=== PATIENT | female | born 1980 | race Caucasian/White ===

== ENCOUNTER 2023-02-16 10:42 | Emergency (ER) | payer SELFPAY ==
--- NOTE | 2023-02-16 11:37 | RAD REPORT ---
EXAM DESCRIPTION: CT - Head Brain Wo Cont - 02/16/2023 11:30 am CLINICAL HISTORY: HEADACHE Headache, drowsiness COMPARISON: No comparisons TECHNIQUE: All CT scans are performed using dose optimization technique as appropriate and may inclu de automated exposure control or mA/KV adjustment according to patient size. FINDINGS: No intracranial hemorrhage, hydrocephalus or extra-axial fluid collection.No areas of brai n edema or evidence of midline shift. The paranasal sinuses and mastoids are clear. The calvarium is intact. IMPRESSION: No acute intracranial abnormality.
[2023-02-16] MEDS ORDERED: KETOROLAC 30 MG/ML INJ ONE (12:11)
[2023-02-16] MEDS ORDERED: TETRACAINE HCL 0.5% 4ML OPTH ONE (12:23)
--- NOTE | 2023-02-16 12:29 | ER ---
Nurse's Notes [facility] Name: Miladis Reyna Age: 42 yrs Sex: Female : 1980 Arrival Date: 02/16/2023 Time: 10:42 Bed 12 Private MD: Diagnosis: Headache Presentation: 02/16 11:16 Chief complaint: Pain behind the left eye that radiates to left head and neck x 8 days, hb loss of vision x 2-3 days. Coronavirus screen: At this time, the client does not indicate any symptoms associated with coronavirus-19. Ebola Screen: No symptoms or risks identified at this time. Initial Sepsis Screen: Does the patient meet any 2 criteria? No. Patient's initial sepsis screen is negative. Does the patient have a suspected source of infection? No. Patient's initial sepsis screen is negative. Risk Assessment: Do you want to hurt yourself or someone else? Patient reports no desire to harm self or others. Onset of symptoms was February 08, 2023. 11:16 Method Of Arrival: Ambulatory hb 11:16 Acuity: ABDULLAHI 2 hb Triage Assessment: 12:11 Headache History: The patient has had previous headaches. General: Appears in no mb9 apparent distress. Pain: Complains of pain in left eye. MAILMASTER: 14:22 LMP N/A - mb9 Historical: - Allergies: 11:18 No Known Allergies; hb - Home Meds: 11:18 Cymbalta oral [Active]; Adderall XR Oral [Active]; hb - PMHx: 11:18 ADHD; hb - PSHx: 11:18 None; hb - Immunization history:: Adult Immunizations up to date. - Social history:: Smoking status: Patient denies any tobacco usage or history of. Screenin:10 [facility] ED Fall Risk Assessment (Adult) History of falling in the last 3 months, mb9 including since admission No falls in past 3 months (0 pts) Confusion or Disorientation No (0 pts) Intoxicated or Sedated No (0 pts) Impaired Gait No (0 pts) Mobility Assist Device Used No (0 pt) Altered Elimination No (0 pt) Score/Fall Risk Level 0 - 2 = Low Risk Oriented to surroundings, Maintained a safe environment, Educated pt \T\ family on fall prevention, incl call for assistance when getting out of bed. Abuse screen: Denies threats or abuse. Nutritional screening: No deficits noted. Tuberculosis screening: No symptoms or risk factors identified. Assessment: 12:08 General: Appears in no apparent distress. Behavior is calm, cooperative. Pain: mb9 Complains of pain in left eye Pain does not radiate. Pain currently is 7 out of 10 on a pain scale. Quality of pain is described as throbbing, Pain began 2-3 days ago. Is continuous, Aggravated by increased activity. Neuro: Casanova Agitation-Sedation Scale (RASS): 0 - Alert and Calm Level of Consciousness is awake, alert, obeys commands, Oriented to person, place, time, situation, Appropriate for age Pupils are Pupil Size: right pupil 3 mm, left pupil 5 mm. Bilateral eyes round, reactive to light, and accomdate. Neuro: Greenhouse Worker are equal bilaterally Moves all extremities. Gait is steady, Speech is normal, Facial symmetry appears normal, Intact. Cardiovascular: Patient's skin is warm and dry. Respiratory: Airway is patent Respiratory effort is even, unlabored, Respiratory pattern is regular, symmetrical, Breath sounds are clear bilaterally. EENT: Sclera/Cornea. Derm: Skin is pink, warm \T\ dry. Musculoskeletal: Range of motion: intact in all extremities. 13:18 Reassessment: No changes from previously documented assessment. Patient and/or family mb9 updated on plan of care and expected duration. Pain level reassessed. Patient is alert, oriented x 3, equal unlabored respirations, skin warm/dry/pink. 14:21 Reassessment: No changes from previously documented assessment. Patient and/or family mb9 updated on plan of care and expected duration. Pain level reassessed. Patient is alert, oriented x 3, equal unlabored respirations, skin warm/dry/pink. 15:23 Reassessment: No changes from previously documented assessment. Patient and/or family mb9 updated on plan of care and expected duration. Pain level reassessed. Patient is alert, oriented x 3, equal unlabored respirations, skin warm/dry/pink. Vital Signs: 11:16 BP 130 / 86; Pulse 71; Resp 16; Temp 98.8(TE); Pulse Ox 100% on R/A; Weight 81.65 kg; hb Height 5 ft. 3 in. ; Pain 5/10; 12:10 BP 133 / 84; Pulse 74; Resp 16; Pulse Ox 100% on R/A; mb9 14:22 BP 111 / 78; Pulse 80; Resp 18; Pulse Ox 99% on R/A; mb9 15:23 BP 115 / 76; Pulse 78; Resp 17; Pulse Ox 99% on R/A; mb9 11:16 Body Mass Index 31.89 (81.65 kg, 160.02 cm) hb 11:16 Pain Scale: Adult hb Visual Acuity: 12:10 Left Eye Visual acuity 20/200, Pupil size 5 mm, Normal, React To Light, Reactive To mb9 Accomodation; Right Eye Visual acuity 20/20, Pupil size 3 mm, Normal, React To Light, Reactive To Accomodation; Both Eyes Visual acuity 20/20; Without Lenses; ED Course: 10:43 Patient arrived in ED. rg4 10:54 [facility] jh7 10:54 Howie Abel MD is Attending Physician. jh7 11:18 Triage completed. hb 11:19 Arm band placed on. hb 11:31 CT Head Brain wo Cont In Process Unspecified. EDMS 11:57 Lachelle Romero, RN is Primary Nurse. mb9 12:11 Placed in gown. Bed in low position. Call light in reach. Side rails up X 1. Client mb9 placed on continuous cardiac and pulse oximetry monitoring. NIBP monitoring applied. 12:28 Bran Sotelo MD is Referral Physician. jh7 14:22 No provider procedures requiring assistance completed. mb9 14:29 Attending Physician role handed off by Howie Abel MD cp3 14:29 Arnie Cruz MD is Attending Physician. cp3 15:18 Brain Wo Cont In Process Unspecified. EDMS 15:56 Chace Lake MD is Referral Physician. cp3 15:57 Zander Sotelo MD is Referral Physician. cp3 16:20 Patient did not have IV access during this emergency room visit. mb9 Administered Medications: 12:07 Drug: Ketorolac IM 60 mg Route: IM; Site: left gluteus; mb9 12:23 Follow up: Response: No adverse reaction mb9 12:23 Drug: Tetracaine Ophthalmic Drops 0.5 % 1 drops Route: Ophthalmic; Site: left eye; mb9 Medication: 12:10 VIS not applicable for this client. mb9 Outcome: 12:29 Discharge ordered by . jh7 15:57 Discharge ordered by . cp3 16:20 Discharged to home ambulatory, with family. mb9 16:20 Condition: stable 16:20 Discharge instructions given to patient, Instructed on discharge instructions, follow up and referral plans. Demonstrated understanding of instructions, follow-up care, medications, Prescriptions given X 1. 16:20 Patient left the ED. mb9 Signatures: Dispatcher [employer] Arnie Belcher MD MD cp3 Janeen Argueta, RN RN Jasmin Ramos 4 Dayana Bowers, ELECTRIC RANGE SERVICER ELECTRIC RANGE SERVICER 7 Lachelle Romero, RN RN mb9
--- NOTE | 2023-02-16 12:29 | EDPHYS ---
Physician Documentation [facility] Name: Miladis Reyna Age: 42 yrs Sex: Female : 1980 Arrival Date: 02/16/2023 Time: 10:42 Bed 12 Private MD: ED Physician Arnie Cruz HPI: 02/16 11:15 This 42 yrs old Female presents to ER via Ambulatory with complaints of Headache, Eye jh7 Problem. 11:15 The patient complains of pain to the left eye. The patient describes the headache as jh7 aching, throbbing. Onset: The symptoms/episode began/occurred 8 day(s) ago. Associated signs and symptoms: Pertinent positives: blurred vision, Pertinent negatives: altered mental status, dizziness, fever, nausea, neck stiffness, Photophobia. Headache History: Denies prior headaches. 42-year-old female with no past medical history presents for left eye pain and blurred vision for the past 8 days. She denies any trauma. Reports that the pain has gotten progressively worse and is now waking her from sleep.. PHARMACY INTERN: 14:22 [facility] N/A - mb9 Historical: - Allergies: 11:18 No Known Allergies; hb - Home Meds: 11:18 Cymbalta oral [Active]; Adderall XR Oral [Active]; hb - PMHx: 11:18 ADHD; hb - PSHx: 11:18 None; hb - Immunization history:: Adult Immunizations up to date. - Social history:: Smoking status: Patient denies any tobacco usage or history of. ROS: 11:15 Constitutional: Negative for fever, chills, and weight loss, Neck: Negative for injury, jh7 pain, and swelling, Cardiovascular: Negative for chest pain, palpitations, and edema, Respiratory: Negative for shortness of breath, cough, wheezing, and pleuritic chest pain, Skin: Negative for injury, rash, and discoloration, Neuro: Negative for headache, weakness, numbness, tingling, and seizure. 11:15 Eyes: Positive for blurry vision, pain, Negative for discharge, foreign body sensation, injury or acute deformity, itching, redness. 11:15 All other systems are negative. Exam: 11:15 Constitutional: This is a well developed, well nourished patient who is awake, alert, jh7 and in no acute distress. Head/Face: Normocephalic, atraumatic. Neck: Trachea midline, no thyromegaly or masses palpated, and no cervical lymphadenopathy. Supple, full range of motion without nuchal rigidity, or vertebral point tenderness. No Meningismus. Cardiovascular: Regular rate and rhythm with a normal S1 and S2. No gallops, murmurs, or rubs. Normal PMI, no JVD. No pulse deficits. Respiratory: Lungs have equal breath sounds bilaterally, clear to auscultation and percussion. No rales, rhonchi or wheezes noted. No increased work of breathing, no retractions or nasal flaring. Skin: Warm, dry with normal turgor. Normal color with no rashes, no lesions, and no evidence of cellulitis. MS/ Extremity: Pulses equal, no cyanosis. Neurovascular intact. Full, normal range of motion. Neuro: Awake and alert, GCS 15, oriented to person, place, time, and situation. Cranial nerves II-XII grossly intact. Motor strength 5/5 in all extremities. Sensory grossly intact. Cerebellar exam normal. Normal gait. 11:15 Eyes: Periorbital structures: appear normal, Pupils: dilated, in left eye, right pupil is approximately 3 mm(s), left pupil is approximately 5 mm(s), Extraocular movements: intact throughout, Conjunctiva: normal, Corneas: are normal, Sclera: no appreciated abnormality, Anterior chamber: no acute changes, Lids and lashes: appear normal. Vital Signs: 11:16 BP 130 / 86; Pulse 71; Resp 16; Temp 98.8(TE); Pulse Ox 100% on R/A; Weight 81.65 kg; hb Height 5 ft. 3 in. ; Pain 5/10; 12:10 BP 133 / 84; Pulse 74; Resp 16; Pulse Ox 100% on R/A; mb9 14:22 BP 111 / 78; Pulse 80; Resp 18; Pulse Ox 99% on R/A; mb9 15:23 BP 115 / 76; Pulse 78; Resp 17; Pulse Ox 99% on R/A; mb9 11:16 Body Mass Index 31.89 (81.65 kg, 160.02 cm) hb 11:16 Pain Scale: Adult hb Visual Acuity: 12:10 Left Eye Visual acuity 20/200, Pupil size 5 mm, Normal, React To Light, Reactive To mb9 Accomodation; Right Eye Visual acuity 20/20, Pupil size 3 mm, Normal, React To Light, Reactive To Accomodation; Both Eyes Visual acuity 20/20; Without Lenses; Procedures: 12:30 Eye Exam: Tonometry: L eye-18, R eye-17. [facility] MDM: 10:54 Patient medically screened. [facility] 12:35 ED course: Negative CT of the brain and tonometry results were within normal range. [facility] Will order an MRI of the brain with contrast. Patient states that she is feeling better after Toradol administration.. 16:02 Data reviewed: vital signs, nurses notes, EMS record, EKG, radiologic studies, CT scan, cp3 MRI. 02/16 11:19 Order name: CT Head Brain wo Cont; Complete Time: 11:45 [facility] 02/16 14:52 Order name: Brain Wo Cont; Complete Time: 15:55 EDMS 02/16 11:31 Order name: Visual Acuity; Complete Time: 12:08 [facility] Administered Medications: 12:07 Drug: Ketorolac IM 60 mg Route: IM; Site: left gluteus; mb9 12:23 Follow up: Response: No adverse reaction mb9 12:23 Drug: Tetracaine Ophthalmic Drops 0.5 % 1 drops Route: Ophthalmic; Site: left eye; mb9 Disposition: 15:56 I reviewed the patient's care provided by Advanced Practice Provider \T\ agree w/ the cp3 diagnosis \T\ care plan. I personally saw the pt \T\ performed a substantive portion of the visit, incldng all aspects of the (History/Exam/Medical Decision Making). Disposition Summary: 02/16/23 15:57 Discharge Ordered Location: Home(02/16/23 15:57) cp3 Condition: Stable(02/16/23 15:57) cp3 Diagnosis - Headache cp3 Followup: cp3 - With: Chace Lake MD - When: 48 Hours - Reason: Recheck today's complaints Followup: cp3 - With: Zander Sotelo MD - When: - Reason: Recheck today's complaints Discharge Instructions: - Discharge Summary Sheet cp3 - General Headache Without Cause cp3 Forms: - Medication Reconciliation Form cp3 - Thank You Letter cp3 - Antibiotic Education cp3 - Prescription Opioid Use cp3 - Patient Portal Instructions cp3 - Leadership Thank You Letter cp3 Prescriptions: - aspirin 81 mg Oral tablet,chewable - chew 1 tablet by ORAL route 2 times per day; 30 tablet; Refills: 0, Product cp3 Selection Permitted Signatures: Dispatcher [employer] EDMS Arnie Cruz MD MD cp3 Janeen Argueta, RN RN Dayana Bowers FNP [facility]7 Lachelle Romero RN RN mb9 Corrections: (The following items were deleted from the chart) 12:36 12:29 [place] [id number] 12:36 12:29 [place] [address] 12:36 12:29 are unchanged [place] [address] 12:36 12:29 Stable [place] [address] 12:36 12:29 Ocular Migraine [place] [address] 14:52 12:37 Brain With Cont+MRI.RAD.BRZ ordered. EDMS EDMS
--- NOTE | 2023-02-16 15:54 | RAD REPORT ---
EXAM DESCRIPTION: MRI - Brain Wo Cont - 02/16/2023 3:27 pm CLINICAL HISTORY: Visual disturbance COMPARISON: Head CT February 16, 2023 TECHNIQUE: Axial, sagittal, and coronal magnetic resonance images of the brain were obtained. FINDINGS: Several areas of increased signal are present within the deep white matter of the brain bi laterally. Largest measures 5 millimeters. Diffusion-weighted/ADC mapping does not reveal evidence of acute infarction. The ventricles are normal caliber. An extra-axial fluid collection is not noted. Fluid within the sinuses/mastoids is not seen IMPRESSION: Several areas of increased signal within the deep white matter the brain bilaterally are nonspecific. These could be related to ischemia secondary to small vessel disease. Migraines and vas culitis are other possibilities.
[2023-02-16 16:32] VITALS: TEMP 98.8
[2023-02-16 16:35] VITALS: O2SAT 99
[2023-02-16 16:36] VITALS: BP 115/76
== END 2023-02-16 16:20 | disposition home or self-care (01) ==
LOC: ER 10:42
DX: R51.9 Headache, unspecified (principal); F90.9 Attention-deficit hyperactivity disorder, unspecified type
CPT/HCPCS: 70450; 70551; 96372; 99284

== ENCOUNTER 2023-08-31 10:00 | Day surgery (SDC) | payer OTHER ==
[2023-08-31 11:01] VITALS: O2SAT 100; BMI 36.0
--- NOTE | 2023-08-31 14:05 | RAD REPORT ---
EXAM DESCRIPTION: RAD - Lumbar Puncture For Dx - 08/31/2023 1:32 pm CLINICAL HISTORY: No comparisons COMPARISON: None. TECHNIQUE: The procedure, risks and alternatives to the procedure were discussed with the patient in detail. After answering all questions, both oral and written consent were obtained. Time-out procedu re was performed. The patient was placed in an oblique prone position on the fluoroscopic table. The skin of the lower back was prepped and draped in the usual sterile fashion. After anesthetizing the skin and deeper sof t tissues with 1% lidocaine, a 22 gauge needle was advanced into the thecal sac at the right L3-4 lev el. When return of clear CSF was noted, a total of 14 mL of CSF were collected, and sent to the lab with the accompanying orders. At the conclusion of the procedure the needle was withdrawn and a sterile bandage placed over the pun cture site. The patient tolerated the procedure well without immediate complications. Post-procedure care and precaution instructions were discussed with the patient before the LP procedure. Fluoroscopy time: 0.5 minutes Radiation dose: 34.4 mGy IMPRESSION: Successful fluoroscopic guided lumbar puncture. All obtained fluid was sent to the lab f or studies requested by the referring physician.
[2023-08-31 15:13] LABS: CSF Glucose 57 mg/dL (40-70)
[2023-08-31 15:22] VITALS: BP 119/83; TEMP 96.5
[2023-08-31 16:13] LABS: Appearance CLEAR (CLEAR); Body Fluid Source CSF; Color of Supernate Not Xanthochromic (Not Xantho); Color of fluid Colorless (COLORLESS); Fluid Total Volume 13.5 ml; Tube # #4
[2023-08-31 16:14] LABS: Body Fluid WBC 2 /mm^3
== END 2023-08-31 15:10 | disposition home or self-care (01) ==
LOC: RAD 10:00 → DS 15:10
PROVIDERS: ATTEND Psychiatry & Neurology Neurology with Special Qualifications in Child Neurology
PROC: 009U3ZX Drainage of Spinal Canal, Percutaneous Approach, Diagnostic (ICD-10-PCS; principal; 2023-08-31)
PROC: B01BZZZ Fluoroscopy of Spinal Cord (ICD-10-PCS; 2023-08-31)
DX: H46.9 Unspecified optic neuritis (principal); F41.9 Anxiety disorder, unspecified; R29.2 Abnormal reflex
CPT/HCPCS: 36415; 77003; 82945; 84157; 89050